=== PATIENT | male | born 1950 | race American Indian/Alaskan Native ===

== ENCOUNTER 2017-02-13 05:07 | Emergency (ER) | payer MEDICARE ==
[2017-02-13 06:10] LABS: Basophils % (Auto) 0.8 % (0.0-1.8); Eosinophils % (Auto) 3.9 % (0.0-4.3); Hematocrit 42.2 % (35.5-45.6); Hemoglobin 14.3 gm/dl (11.8-15.2); Mean Corpuscular HGB Conc 34 % (32-34); Mean Corpuscular Hemoglobin 28 pg (28-32); Mean Corpuscular Volume 83 fl (84-94); Platelet Count 193 K/mm3 (140-440); Red Blood Count 5.09 M/mm3 (3.65-5.03); Red Cell Distribution Width 15.2 % (13.2-15.2); White Blood Count 4.9 K/mm3 (4.5-11.0)
[2017-02-13 06:29] LABS: Anion Gap 17 mmol/L; BUN/Creatinine Ratio 12; Blood Urea Nitrogen 15 mg/dL (9-20); Calcium 8.4 mg/dL (8.4-10.2); Carbon Dioxide 26 mmol/L (22-30); Chloride 103.5 mmol/L (98-107); Glucose 99 mg/dL (75-100); Potassium 4.1 mmol/L (3.6-5.0); Sodium 142 mmol/L (137-145)
[2017-02-13 06:48] LABS: Bilirubin,Urine NEG (Negative); Blood,Urine SM (Negative); Ketones,Urine NEG (Negative); Leukocyte Esterase,Urine TR (Negative); Mucus,Urine FEW /HPF; Nitrite,Urine NEG (Negative); Protein,Urine <15 mg/dL mg/dL (Negative); Urobilinogen,Urine < 2.0 mg/dL (<2.0)
[2017-02-13] MEDS ORDERED: NACL 0.9% 500 ML 500 ML IV ONE (10:10)
--- NOTE | 2017-02-13 10:11 | Emergency Department Report ---
ED General Adult HPI - General Chief complaint: Nausea/Vomiting/Diarrhea Stated complaint: VOMITING BLOOD Time Seen by Provider: 02/13/17 09:54 Source: patient, EMS (ems notes not available at time of chart dictation) Mode of arrival: Stretcher Limitations: No Limitations - History of Present Illness Initial comments: This is a 66-year-old male. The patient is previously unknown to this provider. He has a past medical history of hypertension, and chronic tobacco use. Patient presents to the ER with right-sided ear pain for 1 week, throat pain. This has been going on for the past week. Symptoms are intermittent, and they do not have exacerbating or relieving factors. Patient states that he has been coughing up blood for the past day or so. He indicates he is coughing up only a small amount. No recent travel, no recent surgery, however he does endorse unilateral left lower extremity swelling. There is no chest pain, there is no shortness of breath, there is no bright red blood per rectum. -: Gradual Location: left, lower extremity Consistency: intermittent Improves with: none Worsens with: none Associated Symptoms: cough. denies: shortness of breath - Related Data Previous Rx's Medication Instructions Recorded Last Taken Type Cyclobenzaprine [Flexeril 10mg] 10 mg PO TID PRN #30 tablet 01/13/14 Unknown Rx HYDROcodone/APAP 7.5-325 [Ambrose 1 each PO Q6HR PRN #20 tablet 01/13/14 Unknown Rx 7.5/325 mg] Ibuprofen [Motrin] 600 mg PO Q8H PRN #60 tablet 01/13/14 Unknown Rx amLODIPine [Norvasc] 5 mg PO DAILY #30 tab 02/13/17 Unknown Rx Allergies Allergy/AdvReac Type Severity Reaction Status Date / Time No Known Allergies Allergy Verified 01/13/14 13:53 ED Review of Systems ROS: Stated complaint: VOMITING BLOOD Other details as noted in HPI Constitutional: denies: fever ENT: ear pain, throat pain, congestion Respiratory: cough. denies: shortness of breath Cardiovascular: denies: chest pain Gastrointestinal: denies: abdominal pain, hematemesis, melena, hematochezia Genitourinary: denies: dysuria Musculoskeletal: denies: back pain Skin: denies: lesions Neurological: denies: weakness ED Past Medical Hx - Past Medical History Previous Medical History?: Yes Hx Hypertension: Yes Hx Arthritis: Yes - Surgical History Past Surgical History?: No - Social History Smoking Status: Current Every Day Smoker Substance Use Type: None - Medications Home Medications: Home Medications Medication Instructions Recorded Confirmed Last Taken Type Cyclobenzaprine [Flexeril 10mg] 10 mg PO TID PRN #30 tablet 01/13/14 Unknown Rx HYDROcodone/APAP 7.5-325 [Ambrose 1 each PO Q6HR PRN #20 tablet 01/13/14 Unknown Rx 7.5/325 mg] Ibuprofen [Motrin] 600 mg PO Q8H PRN #60 tablet 01/13/14 Unknown Rx amLODIPine [Norvasc] 5 mg PO DAILY #30 tab 02/13/17 Unknown Rx ED Physical Exam - General Limitations: No Limitations General appearance: alert, in no apparent distress - Head Head exam: Present: atraumatic, normocephalic - Eye Eye exam: Present: normal appearance, EOMI - ENT ENT exam: Present: normal exam, normal orophraynx, mucous membranes moist, TM's normal bilaterally, normal external ear exam, other (there is no mastoid tenderness.) - Neck Neck exam: Present: normal inspection, full ROM. Absent: tenderness, meningismus - Respiratory Respiratory exam: Present: normal lung sounds bilaterally. Absent: respiratory distress, wheezes, rales, rhonchi, stridor, chest wall tenderness, accessory muscle use, decreased breath sounds, prolonged expiratory - Cardiovascular Cardiovascular Exam: Present: regular rate, normal rhythm, normal heart sounds. Absent: bradycardia, tachycardia, irregular rhythm, systolic murmur, diastolic murmur, rubs, gallop - GI/Abdominal GI/Abdominal exam: Present: soft, normal bowel sounds. Absent: distended, tenderness, guarding, rebound, rigid, pulsatile mass - Rectal Rectal exam: Present: deferred - Extremities Exam Extremities exam: Present: normal inspection, full ROM, normal capillary refill , pedal edema, other (there is isolated left lower extremity swelling. There is no pain, redness, pus, streaking. There is no palpable cord.). Absent: calf tenderness - Back Exam Back exam: Present: normal inspection, full ROM. Absent: tenderness, CVA tenderness (R), CVA tenderness (L), muscle spasm, paraspinal tenderness, vertebral tenderness - Neurological Exam Neurological exam: Present: alert, oriented X3, normal gait, other (Extraocular movements intact. Tongue midline. No facial droop. Facial sensation intact to light touch in the V1, V2, V3 distribution bilaterally. 5 and 5 strength in 4 extremities.. Sensation is intact to light touch in 4 extremities.). Absent : motor sensory deficit - Psychiatric Psychiatric exam: Present: normal affect, normal mood - Skin Skin exam: Present: warm, dry, intact, normal color. Absent: rash ED Course Vital Signs 02/13/17 02/13/17 02/13/17 05:26 05:31 05:40 Temperature 98.1 F Pulse Rate 73 75 Respiratory 14 13 Rate Blood Pressure 181/95 Blood Pressure 181/95 [Left] O2 Sat by Pulse 97 99 99 Oximetry 02/13/17 02/13/17 02/13/17 05:45 06:01 06:15 Temperature Pulse Rate 68 62 78 Respiratory 13 11 L 15 Rate Blood Pressure 181/95 188/90 188/90 Blood Pressure [Left] O2 Sat by Pulse 100 98 98 Oximetry 02/13/17 02/13/17 02/13/17 06:31 06:45 07:01 Temperature Pulse Rate 80 64 66 Respiratory 19 15 16 Rate Blood Pressure 163/107 162/105 157/75 Blood Pressure [Left] O2 Sat by Pulse 97 97 96 Oximetry 02/13/17 02/13/17 02/13/17 07:15 07:31 07:45 Temperature Pulse Rate 69 64 70 Respiratory 16 13 12 Rate Blood Pressure 157/75 157/91 157/91 Blood Pressure [Left] O2 Sat by Pulse 96 99 100 Oximetry 02/13/17 02/13/17 02/13/17 08:01 08:15 08:31 Temperature Pulse Rate 69 68 67 Respiratory 18 12 18 Rate Blood Pressure 163/89 163/89 157/91 Blood Pressure [Left] O2 Sat by Pulse 98 100 97 Oximetry 02/13/17 02/13/17 02/13/17 08:45 09:01 09:15 Temperature Pulse Rate 72 61 71 Respiratory 17 12 11 L Rate Blood Pressure 157/91 183/90 163/89 Blood Pressure [Left] O2 Sat by Pulse 99 95 98 Oximetry 02/13/17 02/13/17 02/13/17 09:31 09:45 10:01 Temperature Pulse Rate 80 62 67 Respiratory 12 14 23 Rate Blood Pressure 163/89 163/89 163/89 Blood Pressure [Left] O2 Sat by Pulse 98 100 97 Oximetry 02/13/17 02/13/17 02/13/17 10:15 10:31 11:24 Temperature Pulse Rate 64 63 Respiratory 13 8 L Rate Blood Pressure 163/89 181/93 196/107 Blood Pressure [Left] O2 Sat by Pulse 95 98 Oximetry 02/13/17 02/13/17 11:43 13:19 Temperature 97.8 F Pulse Rate 59 L 72 Respiratory 18 18 Rate Blood Pressure 196/107 Blood Pressure 196/107 192/93 [Left] O2 Sat by Pulse 100 Oximetry - Reevaluation(s) Reevaluation #1: 02/13/17 11:16 Differential diagnosis: Otitis, viral syndrome, pharyngitis, bronchitis, bronchiectasis, pneumonia, pulmonary embolus, malignancy Assessment and plan: 66-year-old male with right-sided ear pain, or neurologic examination is not consistent with otitis media, external, or mastoiditis. He is afebrile, with reassuring vital signs with exception of hypertension. Left lower extremity DVT study is pending. CT scan of the chest is pending. Contrary to what is documented in triage note, patient is not vomiting blood, but coughing up blood. There is no hematemesis or bright red blood per rectum. Disposition to be determined as per imaging. Patient appears quite comfortable at this time. Reevaluation #2: 02/13/17 12:52 CT scan of the chest negative for pulmonary embolus/pneumonia. Emphysematous changes are suggested, suspicious looking lesion noted in the lingular region. Elevated blood pressure is noted and appreciated, the patient endorses to myself and staff that he has not been on antihypertensive medication for the past year. As per the [employer] clinic policy on a symptomatically hypertension: . Are ED blood pressure readings accurate and reliable for screening asymptomatic patients for hypertension? Level A recommendations. None specified. Level B recommendations. If blood pressure measurements are persistently elevated with a systolic blood pressure greater than 140 mm Hg or diastolic blood pressure greater than 90 mm Hg, the patient should be referred for follow- up of possible hypertension and blood pressure management. Level C recommendations. Patients with a single elevated blood pressure reading may require further screening for hypertension in the outpatient setting. 2. Do asymptomatic patients with elevated blood pressures benefit from rapid lowering of their blood pressure? Level A recommendations. None specified. Level B recommendations. (1) Initiating treatment for asymptomatic hypertension in the ED is not necessary when patients have follow-up; (2) Rapidly lowering blood pressure in asymptomatic patients in the ED is unnecessary and may be harmful in some patients; (3) When ED treatment for asymptomatic hypertension is initiated, blood pressure management should attempt to gradually lower blood pressure and should not be expected to be normalized during the initial ED visit. Level C recommendations. None specified. Therefore, patient will be started on low-dose antihypertensive medication, the patient is given a copy of his CAT scan report, he is instructed to discontinue tobacco consumption, and he is instructed to follow up with outpatient primary care and pulmonology. Return precautions are reviewed. Reevaluation #3: 02/13/17 12:55 Patient declines transdermal nicotine at this time. ED Medical Decision Making - Lab Data Result diagrams: 02/13/17 05:56 02/13/17 05:56 Vital Signs 02/13/17 02/13/17 02/13/17 05:26 05:31 05:40 Temperature 98.1 F Pulse Rate 73 75 Respiratory 14 13 Rate Blood Pressure 181/95 Blood Pressure 181/95 [Left] O2 Sat by Pulse 97 99 99 Oximetry 02/13/17 02/13/17 02/13/17 05:45 06:01 06:15 Temperature Pulse Rate 68 62 78 Respiratory 13 11 L 15 Rate Blood Pressure 181/95 188/90 188/90 Blood Pressure [Left] O2 Sat by Pulse 100 98 98 Oximetry 02/13/17 02/13/17 02/13/17 06:31 06:45 07:01 Temperature Pulse Rate 80 64 66 Respiratory 19 15 16 Rate Blood Pressure 163/107 162/105 157/75 Blood Pressure [Left] O2 Sat by Pulse 97 97 96 Oximetry 02/13/17 02/13/17 02/13/17 07:15 07:31 07:45 Temperature Pulse Rate 69 64 70 Respiratory 16 13 12 Rate Blood Pressure 157/75 157/91 157/91 Blood Pressure [Left] O2 Sat by Pulse 96 99 100 Oximetry 02/13/17 02/13/17 02/13/17 08:01 08:15 08:31 Temperature Pulse Rate 69 68 67 Respiratory 18 12 18 Rate Blood Pressure 163/89 163/89 157/91 Blood Pressure [Left] O2 Sat by Pulse 98 100 97 Oximetry 02/13/17 02/13/17 02/13/17 08:45 09:01 09:15 Temperature Pulse Rate 72 61 71 Respiratory 17 12 11 L Rate Blood Pressure 157/91 183/90 163/89 Blood Pressure [Left] O2 Sat by Pulse 99 95 98 Oximetry 02/13/17 02/13/17 02/13/17 09:31 09:45 10:01 Temperature Pulse Rate 80 62 67 Respiratory 12 14 23 Rate Blood Pressure 163/89 163/89 163/89 Blood Pressure [Left] O2 Sat by Pulse 98 100 97 Oximetry 02/13/17 02/13/17 10:15 10:31 Temperature Pulse Rate 64 63 Respiratory 13 8 L Rate Blood Pressure 163/89 181/93 Blood Pressure [Left] O2 Sat by Pulse 95 98 Oximetry Lab Results 02/13/17 02/13/17 02/13/17 Range/Units 05:56 05:56 06:28 WBC 4.9 (4.5-11.0) K/mm3 RBC 5.09 H (3.65-5.03) M/mm3 Hgb 14.3 (11.8-15.2) gm/dl Hct 42.2 (35.5-45.6) % MCV 83 L (84-94) fl MCH 28 (28-32) pg MCHC 34 (32-34) % RDW 15.2 (13.2-15.2) % Plt Count 193 (140-440) K/mm3 Lymph % (Auto) 35.6 H (13.4-35.0) % Waller % (Auto) 7.7 H (0.0-7.3) % Eos % (Auto) 3.9 (0.0-4.3) % Baso % (Auto) 0.8 (0.0-1.8) % Lymph # 1.8 (1.2-5.4) K/mm3 Waller # 0.4 (0.0-0.8) K/mm3 Eos # 0.2 (0.0-0.4) K/mm3 Baso # 0.0 (0.0-0.1) K/mm3 Seg Neutrophils % 52.0 (40.0-70.0) % Seg Neutrophils # 2.6 (1.8-7.7) K/mm3 Sodium 142 (137-145) mmol/L Potassium 4.1 (3.6-5.0) mmol/L Chloride 103.5 (98-107) mmol/L Carbon Dioxide 26 (22-30) mmol/L Anion Gap 17 mmol/L BUN 15 (9-20) mg/dL Creatinine 1.3 (0.8-1.5) mg/dL Estimated GFR > 60 ml/min BUN/Creatinine Ratio 12 % Glucose 99 (75-100) mg/dL Calcium 8.4 (8.4-10.2) mg/dL Urine Color Yellow (Yellow) Urine Turbidity Clear (Clear) Urine pH 5.0 (5.0-7.0) Ur Specific [place] 1.009 (1.003-1.030) Urine Protein <15 mg/dl (Negative) mg/dL Urine Glucose (UA) Neg (Negative) mg/dL Urine Ketones Neg (Negative) mg/dL Urine Blood Sm (Negative) Urine Nitrite Neg (Negative) Urine Bilirubin Neg (Negative) Urine Urobilinogen < 2.0 (<2.0) mg/dL Ur Leukocyte Esterase Tr (Negative) Urine WBC (Auto) 3.0 (0.0-6.0) /HPF Urine RBC (Auto) 3.0 (0.0-6.0) /HPF U Epithel Cells (Auto) < 1.0 (0-13.0) /HPF Urine Mucus Few /HPF - Radiology Data Radiology results: report reviewed, image reviewed LIVE [facility] DOMINIK STOCK Male : 1950 [facility]# [id number] 02/13/17 11:20 - Radiology Dept. [facility]: [id number] : 1950 Patient Age: 66 VASCULAR LAB PRELIMINARY REPORT LLE VENOUS DOPPLER COMPLETED NO EVIDENCE OF DVT/SVT NOTED IN VESSELS/SEGMENTS VISUALIZED Initialized on 02/13/17 11:20 - END OF NOTE Critical care attestation.: If time is entered above; I have spent that time in minutes in the direct care of this critically ill patient, excluding procedure time. ED Disposition Clinical Impression: Hemoptysis, Elevated blood pressure reading Disposition: - TO HOME OR SELFCARE Is pt being admited?: No Does the pt Need Aspirin: No Condition: Stable Instructions: Acute Hemoptysis (ED) Additional Instructions: Discontinued tobacco consumption. Follow up as soon as possible with an outpatient software qa system specialist or primary care doctor for further evaluation and management. Not following up in a timely fashion may result in undiagnosed tumor/cancer/malignancy. Dr. Downs is a local primary care doctor. Dr. Marks is a local pulmonary lung specialist. I strongly recommend discontinuing tobacco consumption. Please note that blood pressure was very elevated in the emergency department, and this provider is initiating the patient on a low-dose blood pressure medication. It is very important to follow-up with primary care doctor within the next 3-4 weeks for elevated blood pressure, as well as long-term complications of hypertension includes stroke, heart attack, disability, , paralysis, loss of quality of life. Return to the ER right away with new pain, worsened pain, duration of pain, fevers, chills, chest pain, shortness of breath, confusion, intractable nausea or vomiting, and ability to tolerate liquid feeds. Prescriptions: amLODIPine [Norvasc] 5 mg PO DAILY #30 tab Referrals: PRIMARY CAREMD [Primary Care Provider] - 3-5 Days RICARDO DOWNS MD [Staff Physician] - 3-5 Days ALEISHA MARKS MD [Staff Physician] - 3-5 Days
[2017-02-13] MEDS ORDERED: COLACE PO ONE (11:00)
[2017-02-13] MEDS ORDERED: APRESOLINE ONE (11:40)
[2017-02-13] MEDS ORDERED: APRESOLINE IV ONE (11:41)
[2017-02-13] MEDS ORDERED: NACL ONE (11:52)
--- NOTE | 2017-02-13 12:29 | Cat Scan Report ---
CTA CHEST: HISTORY: Hemoptysis TECHNIQUE: Helical CT following IV contrast. Pulmonary embolus protocol. Sagittal and coronal reformatted images. Rotational MIP images. FINDINGS: Contrast bolus is satisfactory. No pulmonary embolus is identified. There are moderate centrilobular emphysematous changes in both lungs. A suspicious, irregular 1.4 cm mass is identified in the posterior lingula on image 74, series 3. There is a second 5 mm density in the right upper lobe with a well-defined, angular border which probably represents a pleural fold. The remainder of the lungs are clear. No pleural effusion or pneumothorax. The thyroid gland, tracheobronchial tree, esophagus, heart, pericardium, mediastinal vessels, and bony thorax are unremarkable. IMPRESSION: No pulmonary embolus is identified. Emphysema. Suspicious 1.4 cm lingular nodule. Please note this lesion is likely not accessible for CT-guided biopsy secondary to its small size and central location. PET/CT may prove useful.
[2017-02-13 13:21] VITALS: BP 192/93
--- NOTE | 2017-02-14 08:07 | Vascular Lab Report ---
Left Lower Extremity Venous Duplex Study: Reason for Exam: Swelling of the left lower extremity. Comments on the Right: A limited duplex study was done of the proximal veins of the right lower extremity. All veins visualized are freely compressible without evidence of internal echogenicity. Flow is spontaneous and phasic throughout. No evidence of acute or chronic thrombus is seen in any of the vessels visualized. Comments on the Left: All veins visualized are freely compressible without evidence of internal echogenicity. Flow is spontaneous and phasic throughout. No evidence of acute or chronic thrombus is seen in any of the vessels visualized. Impression: No evidence of acute or chronic deep venous thrombosis in the left lower extremity.
== END 2017-02-13 13:20 | disposition home or self-care (01) ==
LOC: ED 05:07
DX: R04.2 Hemoptysis (principal); I10 Essential (primary) hypertension; M19.90 Unspecified osteoarthritis, unspecified site; F17.200 Nicotine dependence, unspecified, uncomplicated
CPT/HCPCS: 36415; 71275; 80048; 81001; 82962; 85025; 93971; 96374; 99285; J0360; J7040; Q9967